=== PATIENT | female | born 1950 | race Two or more races ===

== ENCOUNTER 2019-02-26 06:00 | Day surgery (SDC) | payer OTHER | END 2019-02-26 11:40 | disposition home or self-care (01) | LOC: AMB-ENDOS 06:00 | DX: D12.2 Benign neoplasm of ascending colon (principal); K64.2 Third degree hemorrhoids; K57.30 Diverticulosis of large intestine without perforation or abscess without bleeding ==

== ENCOUNTER 2019-06-18 09:14 | Day surgery (SDC) | payer OTHER | END 2019-06-18 16:45 | disposition home or self-care (01) | LOC: AMB-ENDOS 09:14 | DX: K63.5 Polyp of colon (principal); K64.3 Fourth degree hemorrhoids ==